=== PATIENT | male | born 1980 | race Caucasian/White ===

== ENCOUNTER 2018-11-22 19:35 | Emergency (ER) | payer OTHER, BC, SELFPAY ==
[2018-11-22 19:37] VITALS: BP 160/96; PULSE 88; RESP 16; TEMP 36.7; O2SAT 99; BMI 20.9
[2018-11-22] MEDS: HYDROcodone Bitartrate/Apap 5/325 Tablet PO (19:55)
[2018-11-22] MEDS: diazePAM 5 MG Tablet PO (19:55)
--- NOTE | 2018-11-22 20:00 | RAD_ITS ---
STUDY: X-RAY - LUMBAR SPINE REASON FOR EXAM: Male, 38 years old. Low back pain. TECHNIQUE: 3 view(s) of the lumbar spine were obtained. COMPARISON: None FINDINGS: No visible fracture. No osseous destruction. Alignment anatomic. Mild disc and facet degeneration at L5-S1. Soft tissues unremarkable. RAD/Lumbar Spine 2 or 3 Views IMPRESSION: No acute osseous abnormality. Electronically Signed: Po Silver, at 20:18 EDT Tel , Service support ,
--- NOTE | 2018-11-22 20:06 | ED.VIS.BACK ---
History of Present Illness Chief Complaint: Back Informant: Patient Onset: Today Context: Gradual Onset Injury: Bending Timing: Continuous Quality: Aching, Throbbing Location: Lumbar Current Severity: Moderate Maximum Severity: Moderate Worsened by: improves with: Movement Relieved by: Nothing Narrative: The patient presents to the emergency department with low back pain. The patient was in his normal state of health. He works as a long-distance highway truck driver. He states that he was moving a piece of machinery and just stepped down. He states he had some tightness in his low back. Throughout the day, the tightness is worsened. He is began to have a bandlike pain across his low back that radiates to his hips. He denies any change in gait. He denies any numbness in his groin. He denies any weakness. He did take ibuprofen with little improvement. Has had no history of prior back injury or back surgery. Prior similar symptoms: No Recent Illness/Hospitalization: No Past Medical History - Allergies and Home Meds Allergies/Adverse Reactions: Allergies No Known Allergies Allergy (Verified 11/22/18 19:40) Primary Care Physician: Roseline Kate [GROUP OF PHYSICIANS] - 1 Day for another exam Prior records reviewed: Yes Past Medical History: None Surgical History: no surgical history Smoking Status: Current every day smoker Review of Systems General: Denies: Chills, Fever, Sweats Eyes: Denies: Visual changes - bilaterally, Diplopia ENT: Denies: Rhinorrhea, Sore throat Cardiovascular: Denies: Chest pain, Palpitations Respiratory: Denies: Dyspnea, Cough, Dyspnea on exertion Gastrointestinal: Denies: Abdominal pain, Nausea, Vomiting, Diarrhea, Melena, Hematochezia Genitourinary: Denies: Dysuria, Hematuria, Frequency Musculoskeletal: Reports: Back pain. Denies: Extremity Pain Skin: Denies: Rash, Wounds Neurological: Denies: Headache, Weakness, Numbness Physical Exam Vital Signs/Narrative: Vital Signs Temp Pulse Resp BP Pulse Ox 11/22/18 19:37 98.0 F 88 16 160/96 H 99 Inital Vital Signs reviewed: Yes General: Well nourished, Well developed Head: Normocephalic, Atraumatic Eyes: Perrl, EOMI ENT: Moist mucous membranes, No rhinorrhea Neck: Supple, Nontender Cardiovascular: Regular rate, Regular rhythm, No murmurs Respiratory: No distress, CTA bilaterally, Chest nontender Abdomen: Soft, Nontender, Nondistended, Normal bowel sounds Back: Normal Inspection, Nontender, Paraspinal Tenderness, Negative SLR - Right, Negative SLR - Left. Negative for: Spinal tenderness Extremeties: Nontender, No edema Skin: Normal color, No rash Neuro: Alert, Oriented, Normal Strength, Normal Sensation, Normal DTR, Normal Gait Psychological: Normal affect Diagnostic/Tx/Re-eval X-Ray: LS SPine, Read by ED Physician, Read by Radiologist, Normal, No Fracture, Normal Bony Alignment Clinical Impression(s) from Imaging Studies Lumbar Spine X-Ray 11/22/18 20:00 IMPRESSION: No acute osseous abnormality. Electronically Signed: Po Diazwer, at 20:18 EDT Tel , Service support , - Medical Decision Making The patient has no red flag symptoms. His symptoms do seem consistent with ruptured disc or even just myofascial strain. X-rays were obtained to rule out compression fracture. These were unremarkable. The patient has a reassuring exam. As this was a work injury, he will be treated and placed on limited duty until he is seen in follow-up by [facility]. Patient is comfortable with this plan of care. Impression 1. Acute lumbar strain ED Disposition - Plan for ED Patient: Instructions: Back Sprain/Strain Prescriptions: cycloBENZAPRine HCl [Flexeril] 10 mg PO TID PRN #20 tab PRN Reason: Muscle Spasm Prescription Printed MethylPREDNISolone DosePak [Medrol DosePak] 4 mg PO UD #1 box Prescription Printed Hydrocodone Bitart/Apap 5-325 [[place] 5MG-325MG] 1 tab PO Q6H PRN PRN 3 Days #10 tab PRN Reason: Pain Prescription Printed [facility]] - 1 Day for another exam
[2018-11-22 20:38] VITALS: BP 126/90; PULSE 67; RESP 18; O2SAT 97
== END 2018-11-22 20:39 | disposition home or self-care (01) ==
LOC: ED 20:25
PROVIDERS: Emergency Provider Emergency Medicine
DX: S39.012A Strain of muscle, fascia and tendon of lower back, initial encounter (principal); F17.200 Nicotine dependence, unspecified, uncomplicated; X50.9XXA Other and unspecified overexertion or strenuous movements or postures, initial encounter; Y93.89 Activity, other specified; Y92.89 Other specified places as the place of occurrence of the external cause; Y99.0 Civilian activity done for income or pay
CPT/HCPCS: 72100; 99283